=== PATIENT | female | born 1930 | race Caucasian/White ===

== ENCOUNTER 2017-03-13 13:52 | Emergency (ER) | payer MEDICARE, OTHER ==
[2017-03-13 11:19] LABS: BASOPHILS 0.4 %; BASOPHILS ABSOLUTE 0.03 10/3/uL (0.0-0.16); EOSINOPHILS 2.5 %; EOSINOPHILS ABSOLUTE 0.21 10/3/uL (0.0-0.53); ER CBC TAT 0 Hrs 03 Mins; HEMATOCRIT 28.8 % (36.0-48.0); HEMOGLOBIN 9.7 g/dL (12.0-16.0); IMMATURE GRANULOCYTES 0.2 %; IMMATURE GRANULOCYTES ABSOLUTE 0.02 10/3/uL (0.0-0.11); LYMPHOCYTES ABSOLUTE 1.02 10/3/uL (0.67-4.30); MEAN CORPUS HGB CONC 33.7 g/dL (32.0-36.0); MEAN CORPUSCULAR HEMOGLOB 30.4 pg (26.0-34.0); MEAN CORPUSCULAR VOLUME 90.3 fL (80-100); MEAN PLATELET VOLUME 9.5 fL (9.2-13.0); MONOCYTES 5.2 %; MONOCYTES ABSOLUTE 0.44 10/3/uL (0.21-1.20); NEUTROPHILS 79.7 %; NEUTROPHILS ABSOLUTE 6.75 10/3/uL (2.02-8.40); PLATELET COUNT 159 10/3/uL (150-400); RBC DISTRIBUTION WIDTH 15.3 % (12.0-16.0); RED CELL COUNT 3.19 10/6/uL (4.0-5.6); WHITE BLOOD CELLS 8.5 10/3/uL (4.5-10.5)
[2017-03-13 11:20] LABS: MANUAL DIFF NO %
[2017-03-13 11:27] LABS: INTERNATIONAL NORMAL RATI 1.5 UNITS (-); PARTIAL THROMBO TIME 41.7 SEC (22.5-37.2); PROTIME (NOT ORD) 17.8 SEC (12.0-14.5)
[2017-03-13 11:36] LABS: A/G RATIO 1.3 (0.7-1.9); ALBUMIN 3.9 G/DL (3.5-5.0); ALKALINE PHOSPHATASE 71 U/L (45-117); BUN (BLOOD UREA NITROGEN) 18 MG/DL (6-23); CALCIUM, SERUM 8.9 MG/DL (8.5-10.4); CHLORIDE, SERUM 104 MMOL/L (96-112); CO2 (CARBON DIOXIDE) 26 MMOL/L (24-34); CREATININE 0.84 MG/DL (0.55-1.02); GFR AFRICAN AMERICAN 73 ML/MIN (>=60); GFR NON AFRICAN AMERICAN 63 ML/MIN (>=60); GLOBULIN 3.1 G/DL (2.5-4.1); GLUCOSE, SERUM 98 MG/DL (60-99); POTASSIUM, SERUM 4.5 MMOL/L (3.5-5.3); SGOT(AST) 19 U/L (5-40); SGPT(ALT) 31 U/L (5-65); SODIUM, SERUM 138 MMOL/L (135-148); TOTAL BILIRUBIN 1.4 MG/DL (0-1.2); TROPONIN I <0.02 NG/ML (<0.05)
[2017-03-13 12:39] LABS: ALLENS TEST Pos; BE (BASE EXCESS) 1.2 MEQ/L (0 +/- 2.5); CARBOXYHEMOGLOBIN 1.3 % (0-3); DEVICE NC; HCO3 (ACTUAL BICARBONATE) 25.6 MEQ/L (23-27); HEMOBLOGIN CONTENT 10.4 G/DL (12-16); INSTRUMENT SERIAL # 8087; METHEMOGLOBIN 0.3 % (0-3); O2 CONTENT 14.2 VOL% (18-24); PCO2 (CO2 TENSION) 40 MMHG (35-45); PO2 (O2 TENSION) 104 MMHG (79-93); SAMPLE Arterial; pH 7.43 (7.37-7.43)
[~2017-03-13 13:52] MED LIST: ACET500CAP PO; ALLERGY SHOTS; ASAB; ASAB PO; ASTEPRO0.15 % NAS; ATRONASAL3 NAS; CETIRIZINE5 MG PO; CITRACAL PO; CO Q-10100 MG PO; COQ10100 MG OR; COQ10100 MG PO; COREG6 PO; ELIQUIS 5 MG TAB5 MG PO; LIQUID TEARS OPH; LOP25 PO; LOP50 PO; NEUR300 PO; NEXIUM40 PO; NITROSTAT0.4 MG SL; NORV5 PO; OS500+D PO; P5 PO; PLAVIX PO; PRAVAC PO; PRAVACHOL40 MG PO; PRILOSEC40 MG PO; PRIN10 PO; PRIN20 PO; PRINZIDE1 TA1 PO; PROTONIX PO; REFRESH OPH; SINGULAIR1 PO; SPIRO25 PO; T PO; TEARS PURE OPH; VITAMIN D31000 UNIT PO; ZANTAC150 MG PO; ZESTORETIC PO; ZESTORETIC1 TAB PO; ZOCOR80 MG PO; ZYRTEC ALLGY10 MG PO; [UNRECOGNIZED DRUG - OTHER] TOP
== END 2017-03-13 15:48 | disposition home or self-care (01) ==
LOC: ER 13:52
PROVIDERS: Emergency Medicine
DX: I50.9 Heart failure, unspecified (principal); D64.9 Anemia, unspecified; I48.91 Unspecified atrial fibrillation; Z88.0 Allergy status to penicillin; Z88.2 Allergy status to sulfonamides; Z88.1 Allergy status to other antibiotic agents; Z79.52 Long term (current) use of systemic steroids; Z79.82 Long term (current) use of aspirin; Z79.899 Other long term (current) drug therapy
CPT/HCPCS: 36600; 71010; 80053; 82805; 83880; 84484; 85025; 85610; 85730; 93005; 96374; 99285; A9270-GY; J1940